=== PATIENT | female | born 1975 | race Hispanic/Latino ===

== ENCOUNTER 2017-11-13 08:39 | Outpatient (CLI) | payer BC, MEDICARE | END 2017-11-13 08:40 | disposition home or self-care (01) | LOC: BICMAMMO 08:39 | PROVIDERS: ATTEND Obstetrics & Gynecology | DX: Z12.31 Encounter for screening mammogram for malignant neoplasm of breast (principal) | CPT/HCPCS: 77063; 77067 ==

== ENCOUNTER 2018-11-14 08:40 | Outpatient (CLI) | payer BC, MEDICARE ==
--- NOTE | 2018-11-14 11:14 | MMO ---
Bilateral MAMMO Bilat Screen [facility]. CLINICAL HISTORY: Patient is 43 years old and is seen for screening. The patient has no personal history of cancer. VIEWS: The views performed were: bilateral craniocaudal with tomosynthesis and bilateral mediolateral oblique with tomosynthesis. FILMS COMPARED: The present examination has been compared to prior imaging studies performed at [facility] on 11/10/2015, 11/10/2016 and 11/13/2017. MAMMOGRAM FINDINGS: There are scattered fibroglandular densities. There are no suspicious masses, suspicious calcifications, or new areas of architectural distortion. IMPRESSION: THERE IS NO MAMMOGRAPHIC EVIDENCE OF MALIGNANCY. A ROUTINE FOLLOW-UP MAMMOGRAM IN 1 YEAR IS RECOMMENDED. THE RESULTS OF THIS EXAM WERE SENT TO THE PATIENT. ACR BI-RADS Category 1 - Negative MAMMOGRAPHY NOTE: 1. A negative mammogram report should not delay a biopsy if a dominant of clinically suspicious mass is present. 2. Approximately 10% to 15% of breast cancers are not detected by mammography. 3. Adenosis and dense breasts may obscure an underlying neoplasm.
== END 2018-11-14 08:41 | disposition home or self-care (01) ==
LOC: BICMAMMO 08:40
PROVIDERS: ATTEND Obstetrics & Gynecology
DX: Z12.31 Encounter for screening mammogram for malignant neoplasm of breast (principal)
CPT/HCPCS: 77063; 77067

== ENCOUNTER 2019-12-16 08:19 | Outpatient (CLI) | payer OTHER, MEDICARE ==
--- NOTE | 2019-12-16 09:12 | MMO ---
Bilateral MAMMO Bilat Screen [facility]. CLINICAL HISTORY: Patient is 44 years old and is seen for screening. The patient has no family history of breast cancer. The patient has no personal history of cancer. VIEWS: The views performed were: bilateral craniocaudal with tomosynthesis and bilateral mediolateral oblique with tomosynthesis. FILMS COMPARED: The present examination has been compared to prior imaging studies performed at [facility] on 11/10/2016, 11/13/2017 and 11/14/2018. This study has been interpreted with the assistance of computer-aided detection. MAMMOGRAM FINDINGS: There are scattered fibroglandular densities. There is a stable intramammary lymph node seen in the upper-outer region of the right breast. There are no suspicious masses, suspicious calcifications, or new areas of architectural distortion. IMPRESSION: THERE IS NO MAMMOGRAPHIC EVIDENCE OF MALIGNANCY. A ROUTINE FOLLOW-UP MAMMOGRAM IN 1 YEAR IS RECOMMENDED. THE RESULTS OF THIS EXAM WERE SENT TO THE PATIENT. ACR BI-RADS Category 2 - Benign finding MAMMOGRAPHY NOTE: 1. A negative mammogram report should not delay a biopsy if a dominant of clinically suspicious mass is present. 2. Approximately 10% to 15% of breast cancers are not detected by mammography. 3. Adenosis and dense breasts may obscure an underlying neoplasm. Reported by: MATTIE CEDILLO MD Electonically Signed: [id number]
== END 2019-12-16 08:20 | disposition home or self-care (01) ==
LOC: BICMAMMO 08:19
PROVIDERS: ATTEND Obstetrics & Gynecology
DX: Z12.31 Encounter for screening mammogram for malignant neoplasm of breast (principal)
CPT/HCPCS: 77063; 77067

== ENCOUNTER 2020-12-16 09:09 | Outpatient (CLI) | payer MEDICARE, OTHER | END 2020-12-16 09:10 | disposition home or self-care (01) | LOC: BICMAMMO 09:09 | PROVIDERS: ATTEND Obstetrics & Gynecology | DX: Z12.31 Encounter for screening mammogram for malignant neoplasm of breast (principal) | CPT/HCPCS: 77063; 77067 ==

== ENCOUNTER 2021-12-21 08:13 | Outpatient (CLI) | payer MEDICARE, OTHER | END 2021-12-21 08:14 | disposition home or self-care (01) | LOC: BICMAMMO 08:13 | PROVIDERS: ATTEND Obstetrics & Gynecology | DX: Z12.31 Encounter for screening mammogram for malignant neoplasm of breast (principal) | CPT/HCPCS: 77063; 77067 ==

== ENCOUNTER 2023-04-04 12:13 | Outpatient (CLI) | payer MEDICARE, OTHER | END 2023-04-04 12:14 | disposition home or self-care (01) | LOC: BICULT 12:13 | PROVIDERS: ATTEND Otolaryngology Plastic Surgery within the Head & Neck | DX: E04.9 Nontoxic goiter, unspecified (principal); E07.9 Disorder of thyroid, unspecified | CPT/HCPCS: 76536 ==

== ENCOUNTER 2024-01-12 07:46 | Outpatient (CLI) | payer OTHER, MEDICARE | END 2024-01-12 07:47 | disposition home or self-care (01) | LOC: BICMAMMO 07:46 | PROVIDERS: ATTEND Obstetrics & Gynecology | DX: Z12.31 Encounter for screening mammogram for malignant neoplasm of breast (principal) | CPT/HCPCS: 77063; 77067 ==

== ENCOUNTER 2024-02-08 09:12 | Outpatient (CLI) | payer OTHER, MEDICARE | END 2024-02-08 09:13 | disposition home or self-care (01) | LOC: BICULT 09:12 | PROVIDERS: ATTEND Otolaryngology Otolaryngic Allergy | DX: E04.2 Nontoxic multinodular goiter (principal); E04.1 Nontoxic single thyroid nodule | CPT/HCPCS: 76536 ==

== ENCOUNTER 2025-07-23 07:08 | Emergency (ER) | payer MEDICARE, OTHER | END 2025-07-23 09:00 | disposition home or self-care (01) | LOC: ERS 07:08 | DX: J18.9 Pneumonia, unspecified organism (principal); H10.9 Unspecified conjunctivitis; I12.0 Hypertensive chronic kidney disease with stage 5 chronic kidney disease or end stage renal disease; N18.6 End stage renal disease; Z94.0 Kidney transplant status | CPT/HCPCS: 71045; 87428 ==